=== PATIENT | male | born 1960 | race Caucasian/White ===

== ENCOUNTER 2024-11-20 13:31 | Inpatient (IN) | payer OTHER ==
[~2024-11-20] VITALS: Ht 180.3 cm; Wt 129.3 kg
[2024-11-20] MEDS ORDERED: ONDANSETRON HCL INJ 2MG/ML 2ML 2 MG/ML VIAL IV PRN (14:30)
[2024-11-20 16:30] VITALS: BP 151/97; PULSE 81; RESP 20; TEMP 97.7; O2SAT 100
[2024-11-20] MEDS ORDERED: DEXTROSE 50% SYRINGE 50 ML IV PRN (17:45)
[2024-11-20 20:00] VITALS: BP 142/80; PULSE 93; RESP 18; TEMP 98; O2SAT 96
[2024-11-20 20:10] VITALS: BP 151/97; PULSE 81; RESP 20; TEMP 97.7; O2SAT 100
[2024-11-20] MEDS: INSULIN LISPRO 100 UNIT/1 ML 3ML VIAL SQ SCH (21:46)
[2024-11-20 22:15] LABS: BASOPHILS % 0.5 % (0.0-1.0); HEMATOCRIT 49.5 % (38.2-49.6); HEMOGLOBIN 15.9 g/dL (14.0-18.0); LYMPHOCYTES # (AUTO) 1.2 (1.0-3.2); LYMPHOCYTES % 30.5 % (18.0-39.1); MEAN CORPUSCULAR HEMOGLOBIN 30.9 pg (28-32); MEAN CORPUSCULAR HGB CONC 32.1 g/dL (31-35); MEAN CORPUSCULAR VOLUME 96.3 fL (81-99); MONOCYTES # (AUTO) 0.5 (0.2-0.8); NEUTROPHILS # (AUTO) 2.1 (2.1-6.9); NEUTROPHILS % 55.7 % (38.7-80.0); PLATELET COUNT 80 x10e3/uL (140-360); RED BLOOD COUNT 5.14 x10e6/uL (4.3-5.7); RED CELL DISTRIBUTION WIDTH 13.9 % (11.7-14.4); WHITE BLOOD COUNT 3.83 x10e3/uL (4.8-10.8)
[2024-11-20 22:18] VITALS: BP 151/97; PULSE 81; RESP 20; TEMP 97.7; O2SAT 100
[2024-11-20 22:24] LABS: ANION GAP 15.7 mmol/L (8-16); CALCIUM 8.4 mg/dL (8.4-10.2); CREATININE, SERUM 0.84 mg/dL (0.72-1.25); POTASSIUM 3.7 mmol/L (3.5-5.1)
[2024-11-20] MEDS ORDERED: INFLUENZA VIRUS VAC SPLIT INJ 0.5 ML SYR IM SCH (23:30)
[2024-11-20] MEDS: ACETAMINOPHEN 325 MG TAB PO PRN (23:55)
[2024-11-21] VITALS (12 sets, daily range): BP systolic 112–141; BP diastolic 66–93; PULSE 71–96; RESP 18–20; TEMP 97.9–98.4; O2SAT 97–100
[2024-11-21] MEDS ORDERED: GLIMEPIRIDE2 MG PO (00:18)
[2024-11-21] MEDS ORDERED: JARDIANCE10 MG (00:18)
[2024-11-21] MEDS ORDERED: LANTUS 3ML100 UNITS/ (00:18)
[2024-11-21] MEDS ORDERED: LOPRESSOR25 MG PO (00:19)
[2024-11-21] MEDS ORDERED: METFORMIN HCL500 MG PO (00:19)
[2024-11-21] MEDS: ALBUTEROL/IPRATROPIUM 3 ML NEB NEB PRN (00:40)
[2024-11-21 07:05] LABS: BASOPHILS % 0.7 % (0.0-1.0); EOSINOPHILS % 1.4 % (0.0-6.0); HEMATOCRIT 45.1 % (38.2-49.6); LYMPHOCYTES # (AUTO) 0.9 (1.0-3.2); LYMPHOCYTES % 31.7 % (18.0-39.1); MEAN CORPUSCULAR HGB CONC 33.3 g/dL (31-35); MEAN CORPUSCULAR VOLUME 93.2 fL (81-99); MONOCYTES # (AUTO) 0.3 (0.2-0.8); MONOCYTES % 11.5 % (4.4-11.3); NEUTROPHILS # (AUTO) 1.5 (2.1-6.9); NEUTROPHILS % 54.3 % (38.7-80.0); PLATELET COUNT 68 x10e3/uL (140-360); RED BLOOD COUNT 4.84 x10e6/uL (4.3-5.7); WHITE BLOOD COUNT 2.78 x10e3/uL (4.8-10.8)
[2024-11-21 07:38] LABS: ANION GAP 14.6 mmol/L (8-16); CALCIUM 8.3 mg/dL (8.4-10.2); CREATININE, SERUM 0.79 mg/dL (0.72-1.25); POTASSIUM 3.6 mmol/L (3.5-5.1)
[2024-11-21] MEDS: METOPROLOL TARTRATE 25 MG TAB PO SCH (09:42)
[2024-11-21] MEDS: APIXABAN 5 MG TABLET PO SCH (09:42)
[2024-11-21] MEDS: INSULIN GLARGINE 100 UNITS/ML VIAL SQ ONE (09:43)
[2024-11-21] MEDS ORDERED: IOPAMIDOL 370 MG/ML 100 ML INFUS..BTL INJ ONE (11:11)
[2024-11-21] MEDS: INSULIN GLARGINE 100 UNITS/ML VIAL SQ SCH (16:42)
[2024-11-22] VITALS (10 sets, daily range): BP systolic 110–146; BP diastolic 56–84; PULSE 65–95; RESP 18–20; TEMP 97.7–98.4; O2SAT 96–100
[2024-11-22 07:21] LABS: BASOPHILS % 0.3 % (0.0-1.0); EOSINOPHILS # (AUTO) 0.1 (0.0-0.4); EOSINOPHILS % 2.4 % (0.0-6.0); HEMATOCRIT 43.9 % (38.2-49.6); HEMOGLOBIN 14.7 g/dL (14.0-18.0); LYMPHOCYTES % 29.6 % (18.0-39.1); MEAN CORPUSCULAR HEMOGLOBIN 30.9 pg (28-32); MEAN CORPUSCULAR HGB CONC 33.5 g/dL (31-35); MEAN CORPUSCULAR VOLUME 92.4 fL (81-99); MONOCYTES # (AUTO) 0.2 (0.2-0.8); MONOCYTES % 6.3 % (4.4-11.3); NEUTROPHILS % 60.8 % (38.7-80.0); PLATELET COUNT 73 x10e3/uL (140-360); RED BLOOD COUNT 4.75 x10e6/uL (4.3-5.7); RED CELL DISTRIBUTION WIDTH 13.9 % (11.7-14.4); WHITE BLOOD COUNT 3.34 x10e3/uL (4.8-10.8)
[2024-11-22 07:49] LABS: CALCIUM 8.2 mg/dL (8.4-10.2); CREATININE, SERUM 0.77 mg/dL (0.72-1.25)
[2024-11-22 08:01] LABS: CHOL/HDL RATIO 5.1 (3.9-4.7)
[2024-11-22 08:14] LABS: BILIRUBIN,DIRECT 0.3 mg/dL (0.0-0.5); BILIRUBIN,TOTAL 0.7 mg/dL (0.2-1.2); MAGNESIUM 1.7 MG/DL (1.3-2.1); TOTAL PROTEIN 5.7 g/dL (6.5-8.1)
[2024-11-22] MEDS: FUROSEMIDE 40 MG TAB PO SCH (09:04)
[2024-11-22] MEDS: METOPROLOL TARTRATE 25 MG TAB PO SCH (09:04)
[2024-11-22] MEDS: SPIRONOLACTONE 25 MG TAB PO SCH (09:04)
[2024-11-23] VITALS (10 sets, daily range): BP systolic 120–148; BP diastolic 62–98; PULSE 78–95; RESP 18–20; TEMP 97.1–98.3; O2SAT 95–100
[2024-11-23] MEDS: INSULIN GLARGINE 100 UNITS/ML VIAL SQ SCH (16:34)
[2024-11-24 01:25] VITALS: BP 131/78; PULSE 69; RESP 20; TEMP 97.5; O2SAT 99
[2024-11-24 04:44] VITALS: BP 135/68; PULSE 67; RESP 20; TEMP 98.1; O2SAT 100
[2024-11-24 06:27] LABS: BASOPHILS % 0.5 % (0.0-1.0); EOSINOPHILS # (AUTO) 0.2 (0.0-0.4); EOSINOPHILS % 4.1 % (0.0-6.0); HEMATOCRIT 45.8 % (38.2-49.6); HEMOGLOBIN 15.5 g/dL (14.0-18.0); LYMPHOCYTES # (AUTO) 1.1 (1.0-3.2); LYMPHOCYTES % 27.1 % (18.0-39.1); MEAN CORPUSCULAR HEMOGLOBIN 30.8 pg (28-32); MEAN CORPUSCULAR HGB CONC 33.8 g/dL (31-35); MEAN CORPUSCULAR VOLUME 90.9 fL (81-99); MONOCYTES # (AUTO) 0.3 (0.2-0.8); MONOCYTES % 6.8 % (4.4-11.3); NEUTROPHILS # (AUTO) 2.5 (2.1-6.9); NEUTROPHILS % 61.3 % (38.7-80.0); PLATELET COUNT 76 x10e3/uL (140-360); RED BLOOD COUNT 5.04 x10e6/uL (4.3-5.7); RED CELL DISTRIBUTION WIDTH 13.4 % (11.7-14.4); WHITE BLOOD COUNT 4.14 x10e3/uL (4.8-10.8)
[2024-11-24 06:57] LABS: ALBUMIN 3.2 g/dL (3.5-5.0); ALBUMIN/GLOBULIN RATIO 1.1 (0.8-2.0); ANION GAP 13.8 mmol/L (8-16); BILIRUBIN,TOTAL 1.1 mg/dL (0.2-1.2); CALCIUM 8.6 mg/dL (8.4-10.2); CREATININE, SERUM 0.8 mg/dL (0.72-1.25); MAGNESIUM 1.7 MG/DL (1.3-2.1); PHOSPHORUS 3.4 MG/DL (2.3-4.7); POTASSIUM 3.8 mmol/L (3.5-5.1); TOTAL PROTEIN 6.2 g/dL (6.5-8.1)
[2024-11-24 07:16] VITALS: PULSE 87; RESP 20; O2SAT 95
[2024-11-24 08:00] VITALS: BP 135/68; PULSE 87; RESP 20; TEMP 98.1; O2SAT 95
[2024-11-24 08:01] VITALS: BP 136/74; PULSE 77; RESP 18; TEMP 97.5; O2SAT 100
[2024-11-24 09:08] VITALS: BP 136/74; PULSE 77
[2024-11-24] MEDS: PNEUMOCOCCAL VACCINE POLYVALENT 23 MCG/0.5 ML VIAL IM ONE (10:58)
[2024-11-24] MEDS: INFLUENZA VIRUS VAC SPLIT INJ 0.5 ML SYR IM ONE (11:00)
== END 2024-11-24 11:30 | disposition home or self-care (01) | DRG 308 ==
LOC: EDBD 13:31 → MED/SURG3 13:31
PROVIDERS: ADMIT Internal Medicine; ATTEND Internal Medicine
DX: I48.0 Paroxysmal atrial fibrillation (principal); J18.9 Pneumonia, unspecified organism; K76.6 Portal hypertension; Z68.41 Body mass index [BMI] 40.0-44.9, adult; K70.30 Alcoholic cirrhosis of liver without ascites; E66.9 Obesity, unspecified; I48.92 Unspecified atrial flutter; D69.59 Other secondary thrombocytopenia; E11.9 Type 2 diabetes mellitus without complications; D72.818 Other decreased white blood cell count; E78.5 Hyperlipidemia, unspecified; E86.0 Dehydration; K80.20 Calculus of gallbladder without cholecystitis without obstruction; R16.1 Splenomegaly, not elsewhere classified; J06.9 Acute upper respiratory infection, unspecified; I10 Essential (primary) hypertension; Z79.4 Long term (current) use of insulin; Z79.01 Long term (current) use of anticoagulants; Z79.84 Long term (current) use of oral hypoglycemic drugs; Z88.0 Allergy status to penicillin
CPT/HCPCS: 36415; 71046; 71260; 74177; 80048; 80053; 80061; 80076; 82948; 83036; 83735; 84100; 84443; 85025; 90732; 93306; 94640; 94799; G0009; J0696; J2470; J7050; Q9967